=== PATIENT | female | born 1980 | race Caucasian/White ===

== ENCOUNTER → 2021-12-20 | Day surgery (SDC) | payer OTHER ==
[~2021-12-20] VITALS: Ht 162.6 cm; Wt 68.4 kg
[~2021-12-20] MED LIST: COLESTIPOL HCL1 GM PO; CORGARD40 MG PO; LASIX40 MG PO; PHENTERMINE H37.5 M1 PO; SIMPESSE 0.15-1 EACH PO
[2021-12-20 08:08] LABS: HCG (URINE) SCREEN NEGATIVE (NEGATIVE)
[2021-12-20 08:10] LABS: HCT 45.9 % (37.0-47.0); HGB 15.1 g/dl (12.5-16.0); MCH 30.3 pg (25.0-31.0); MCHC 32.9 g/dL (32.0-36.0); MPV 10.3 fL (6.0-9.5); RBC 4.99 M/uL (4.20-5.40); RDW 13.8 % (11.5-14.0); WBC 7.8 K/uL (4.0-10.5)
[2021-12-20 08:54] LABS: ALBUMIN 3.3 g/dL (3.4-5.0); BILIRUBIN - TOTAL 0.4 mg/dL (0.2-1.0); BUN/CREAT RATIO (CALC) 14.3 RATIO; CREATININE 0.77 mg/dL (0.51-0.95); GLOBULIN (CALCULATION) 3.1 g/dL; POTASSIUM 4.4 mmol/L (3.5-5.1); TOTAL PROTEIN 6.4 g/dL (6.4-8.2)
== END | disposition home or self-care (01) ==
LOC: FAS 07:45
PROVIDERS: Surgery
DX: Z12.11 Encounter for screening for malignant neoplasm of colon (principal); K63.89 Other specified diseases of intestine; I10 Essential (primary) hypertension; Z88.2 Allergy status to sulfonamides; Z80.0 Family history of malignant neoplasm of digestive organs; Z90.49 Acquired absence of other specified parts of digestive tract; Z87.891 Personal history of nicotine dependence
CPT/HCPCS: 36415; 80053; 84703; J2250; J2704; J7120